=== PATIENT | female | born 1995 | race African-American/Black ===

== ENCOUNTER 2019-09-14 05:45 | Inpatient (IN) ==
[2019-09-14] MEDS ORDERED: PEPCID IV PRN (05:53)
[2019-09-14] MEDS ORDERED: ZOFRAN IV PRN (05:53)
[2019-09-14] MEDS ORDERED: KEFZOL 2 GM/D5W 2 GM/50 ML IVPB IV PRN (05:53)
[2019-09-14] MEDS ORDERED: STADOL IV PRN (05:53)
[2019-09-14] MEDS ORDERED: PEPCID PO PRN ×2 (05:53)
[2019-09-14] MEDS ORDERED: TYLENOL PO PRN (05:53)
[2019-09-14] MEDS ORDERED: REGLAN PO PRN (05:53)
[2019-09-14] MEDS ORDERED: AMPICILLIN 2 GM in NS 100 ML IV ONE (06:00)
[2019-09-14] MEDS ORDERED: SODIUM CHLORIDE 0.9% INJ SCH (06:00)
[2019-09-14] MEDS: LR 1,000 ML IV SCH ×2 (06:25→08:44)
[2019-09-14 06:43] LABS: URINE SOURCE VOIDED
[2019-09-14 06:46] LABS: BASO# 0.03 X1000 (0.0-0.2); BASO% 0.4 % (0.0-0.8); BILIRUBIN URINE NEGATIVE (NEGATIVE); BLOOD URINE TRACE (NEGATIVE); COLOR YELLOW; EOS# 0.07 X1000 (0.0-0.7); GLUCOSE URINE NEGATIVE (NEGATIVE); HEMATOCRIT 33.1 % (37.0-47.0); HEMOGLOBIN 10.3 g/dL (12.0-16.0); KETONE URINE NEGATIVE (NEGATIVE); LEUKOCYTES URINE TRACE (NEGATIVE); LYMPH# 2.78 X1000 (1.2-3.4); LYMPH% 41.6 % (20.5-51.1); MCHC 31.1 g/dL (33-37); MCV 83.6 FL (81-99); MONO# 0.44 X1000 (0.11-0.59); MONO% 6.6 % (1.7-9.3); MPV 10.7 FL (7.4-10.4); NEUT# 3.36 X1000 (1.4-6.5); NEUT% 50.4 % (42.2-75.2); NITRITE URINE NEGATIVE (NEGATIVE); PH URINE 6.5; PLT 191 X1000 (130-400); PROTEIN URINE TRACE mg/dL (NEGATIVE); RBC 3.96 XMIL (4.2-5.4); RDW 14.1 % (11.5-14.5); SP GRAVITY URINE 1.027; TURBIDITY URINE CLEAR (CLEAR); UROBILINOGEN URINE NORMAL (NORMAL); WBC 6.68 X1000 (4.8-10.8)
[2019-09-14 07:00] LABS: UR AMPHETAMINES QUAL NONE DETECTED (NONE DETECT); UR BARBITUATES QUAL NONE DETECTED (NONE DETECT); UR BENZODIAZEPIN QUAL NONE DETECTED (NONE DETECT); UR CANNABINOIDS QUAL NONE DETECTED (NONE DETECT); UR COCAINE QUAL NONE DETECTED (NONE DETECT); UR METHADONE QUAL NONE DETECTED (NONE DETECT); UR OPIATES QUAL NONE DETECTED (NONE DETECT); UR OXYCODONE QUAL NONE DETECTED (NONE DETECT); UR PCP QUAL NONE DETECTED (NONE DETECT)
[2019-09-14] MEDS: PITOCIN 30 UNITS/NS 30 UNIT/500 ML IV.SOLN IV SCH ×2 (07:11→16:18)
[2019-09-14] MEDS ORDERED: XYLOCAINE-MPF 1% INJ ONE (07:16)
[2019-09-14] MEDS ORDERED: MINERAL OIL TOP PRN ×2 (07:16→16:06)
[2019-09-14] MEDS ORDERED: NAROPIN 0.2% INJ ONE (08:15)
[2019-09-14] MEDS ORDERED: FENTANYL IV ONE (08:15)
[2019-09-14] MEDS ORDERED: FENTANYL-BUPIV-NS 500 MCG-0.125% 250 ML EPIDURAL SCH (09:00)
--- NOTE | 2019-09-14 09:03 | HISTORY AND PHYSICAL ---
HISTORY OF PRESENT ILLNESS: The patient is a 24-year-old, black female, G3, P1, at 40 weeks gestation, for induction of labor. The patient's care is unremarkable to date. She does have a group B strep culture that was positive, and plan on treating with prophylactic antibiotic therapy during her labor course. PAST MEDICAL HISTORY: Unremarkable. PAST SURGICAL HISTORY: Appendectomy. PAST OB HISTORY: G3, P1. Spontaneous vaginal delivery x1, 7 pounds 6 ounces, and she had an elective AB. UPPER CASER HISTORY: Menarche was at age 14. REVIEW OF SYSTEMS: She reports migraines. FAMILY HISTORY: Significant for diabetes mellitus and high blood pressure. SOCIAL HISTORY: Tobacco use: None. Alcohol use: None. MEDICATIONS: None at the present time. ALLERGIES: No known drug allergies. PHYSICAL EXAMINATION: VITAL SIGNS: Height 5 feet 6 inches, weight 244 pounds. Temperature 98 degrees, blood pressure 120/67, pulse of 90, respirations 14. heart rate in the 130s with positive accelerations. HEENT: Pupils equal, round, reactive to light and accommodation. Extraocular movements intact. Oropharynx clear. NECK: Supple. No thyromegaly. LUNGS: Clear to auscultation. HEART: Regular rate and rhythm. ABDOMEN: Gravid, nontender. PELVIC: Cervix was 2 cm dilated, 50% effaced, -2 station. EXTREMITIES: Mild lower extremity edema. DTRs were 2+ bilaterally of lower extremities. ASSESSMENT AND PLAN: A 24-year-old, 3, para 1, at 40 weeks gestation, for induction of labor with a favorable cervix. The patient is also noted to be group B strep positive, and will start antibiotic prophylactic therapy. cc: Tyson Santos III, MD
[2019-09-14] MEDS: AMPICILLIN 1 GM in NS 50 ML IV SCH ×2 (11:07→15:08)
[2019-09-14] MEDS ORDERED: M-M-R II VACCINE SUBQ ONE (16:06)
[2019-09-14] MEDS ORDERED: AMBIEN PO PRN (16:06)
[2019-09-14] MEDS ORDERED: HYDROXYZINE IM PRN (16:06)
[2019-09-14] MEDS ORDERED: PITOCIN IM PRN (16:06)
[2019-09-14] MEDS ORDERED: NORCO-5 PO PRN (16:06)
[2019-09-14] MEDS ORDERED: BENADRYL IV PRN (16:06)
[2019-09-14] MEDS ORDERED: XYLOCAINE-MPF 1% INJ PRN (16:06)
[2019-09-14] MEDS ORDERED: BOOSTRIX VACCINE IM ONE (16:06)
[2019-09-14] MEDS ORDERED: PERI MEDS (DERMOPLAST/NUPERCAINAL/TUCKS) MISC PRN (16:06)
[2019-09-14] MEDS ORDERED: CYTOTEC PO PRN (16:06)
[2019-09-14] MEDS ORDERED: ATARAX PO PRN (16:06)
[2019-09-14] MEDS ORDERED: BENADRYL PO PRN (16:06)
[2019-09-14] MEDS ORDERED: PITOCIN 20 UNITS/NS 20 UNITS/1,000 ML IV.SOLN IV SCH (16:15)
[2019-09-14] MEDS ORDERED: PITOCIN 30 UNITS/NS 30 UNIT/500 ML IV.SOLN IV SCH (16:15)
--- NOTE | 2019-09-14 19:46 | OPERATIVE NOTE ---
PROCEDURE DATE: 09/14/2019 DELIVERY NOTE: The patient progressed to complete and pushing. Had spontaneous vaginal delivery of a female , 7 pounds 11 ounces, with Apgars of 9 and 10, at 1545 on 09/14/2019 over an intact perineum. Cord blood sample was obtained at this time. Placenta was delivered intact with 3 vessel cord. ESTIMATED BLOOD LOSS: 150 mL. ANESTHESIA: Epidural. COUNTS: All counts were correct x2. cc: MD VIVEK Pichardo III
[2019-09-14] MEDS: MOTRIN PO PRN (21:47)
[2019-09-14] MEDS: PERICOLACE PO SCH (21:47)
[2019-09-15 04:50] LABS: BASO# 0.02 X1000 (0.0-0.2); BASO% 0.3 % (0.0-0.8); EOS# 0.05 X1000 (0.0-0.7); EOS% 0.7 % (0.0-10.0); HEMATOCRIT 32.4 % (37.0-47.0); LYMPH% 36.6 % (20.5-51.1); MCHC 30.9 g/dL (33-37); MCV 84.2 FL (81-99); MONO# 0.53 X1000 (0.11-0.59); MONO% 7.2 % (1.7-9.3); NEUT# 4.07 X1000 (1.4-6.5); NEUT% 55.2 % (42.2-75.2); PLT 191 X1000 (130-400); RBC 3.85 XMIL (4.2-5.4); RDW 14.3 % (11.5-14.5); WBC 7.37 X1000 (4.8-10.8)
--- NOTE | 2019-09-15 07:06 | OB/GYN PROGRESS NOTE ---
- Subjective Patient asleep, no distress, report per staff benign OB Physical Exam Vital Signs - 8 hr 09/15/19 00:06 Temperature 97.1 F L Pulse Rate 77 Respiratory Rate 18 Blood Pressure 114/60 O2 Sat by Pulse Oximetry 97 - CONSTITUTIONAL General Appearance: appears well, no apparent distress - RESPIRATORY Respiratory: no respiratory distress - GENITOURINARY Female Genitalia/Pelvic Exam: deferred Active Medications Generic Name Dose Route Start Last Admin Trade Name Freq PRN Reason Stop Dose Admin Acetaminophen 650 mg 09/14/19 05:53 09/14/19 08:08 Tylenol PO 650 mg Q4-6H PRN PRN Administration Headache Hydrocodone Bitart/Acetaminophen 1 each 09/14/19 16:06 09/15/19 00:21 Lyman-5 PO 1 each Q3-4H PRN PRN Administration Pain (1-6 on Pain Scale) Hydrocodone Bitart/Acetaminophen 1 each 09/14/19 16:06 Lyman-10 PO Q3-4H PRN PRN Pain (7-10 on Pain Scale) Benzocaine 1 each 09/14/19 16:06 Jemima Meds (Dermoplast/Nupercainal/Tucks) MISC 3-4XDAY PRN PRN episiotomy/hemorrhoids Butorphanol Tartrate 2 mg 09/14/19 05:53 Stadol IV PRN PRN Pain Diphenhydramine HCl 12.5 mg 09/14/19 16:06 Benadryl IV Q4H PRN PRN Itching Diphenhydramine HCl 25 mg 09/14/19 16:06 Benadryl PO Q4H PRN PRN Itching Famotidine 20 mg 09/14/19 05:53 Pepcid PO ONCE PRN PRN section Famotidine 20 mg 09/14/19 05:53 09/14/19 11:07 Pepcid IV 20 mg Q12H PRN PRN Administration GI upset or indigestion Famotidine 40 mg 09/14/19 05:53 Pepcid PO Q12H PRN PRN GI upset or indigestion Hydroxyzine HCl 50 mg 09/14/19 16:06 Hydroxyzine IM Q3-4H PRN PRN Nausea Hydroxyzine HCl 50 mg 09/14/19 16:06 Atarax PO Q3-4H PRN PRN Nausea Lactated Ringer's 1,000 mls @ 0 mls/hr 09/14/19 06:00 09/14/19 08:44 Lr IV 999 mls/hr .Q0M DOMINIK Administration As Directed Oxytocin/Sodium Chloride 30 unit in 500 mls @ 0 mls/hr 09/14/19 07:00 09/14/19 16:18 Pitocin 30 Units/Ns IV 125 mls/hr .Q0M DOMINIK Administration As Directed Cefazolin Sodium/Dextrose 2 gm in 50 mls @ 50 mls/hr 09/14/19 05:53 Kefzol 2 Gm/D5w IV ONCE PRN PRN section Fentanyl/Bupivacaine/Sodium Chlor 250 mls @ 0 mls/hr 09/14/19 09:00 09/14/19 09:30 Kjelbunn-Lcecd-Tx 500 Mcg-0.125% EPIDURAL 12 mls/hr DIRECTED DOMINIK Administration As Directed Oxytocin/Sodium Chloride 20 units in 1,000 mls @ 0 mls/hr 09/14/19 16:15 Pitocin 20 Units/Ns IV .Q0M DOMINIK As Directed Ibuprofen 800 mg 09/14/19 16:06 09/14/19 21:47 Motrin PO 800 mg Q8H PRN PRN Administration cramping Lidocaine HCl 30 ml 09/14/19 16:06 Xylocaine-Mpf 1% INJ PRN PRN Perineal repair Metoclopramide HCl 10 mg 09/14/19 05:53 Reglan PO ONCE PRN PRN section Mineral Oil 30 ml 09/14/19 07:16 Mineral Oil TOP PRN PRN lubrication Mineral Oil 30 ml 09/14/19 16:06 Mineral Oil TOP PRN PRN Perineal massage Misoprostol 800 microgm 09/14/19 16:06 Cytotec PO PRN PRN Severe bleeding Ondansetron HCl 4 mg 09/14/19 05:53 Zofran IV PRN PRN Nausea Oxytocin 20 unit 09/14/19 16:06 Pitocin IM PRN PRN Severe bleeding Senna/Docusate Sodium 1 each 09/14/19 21:00 09/14/19 21:47 Pericolace PO 1 each QHS DOMINIK Administration Sodium Chloride 5 - 10 ml 09/14/19 06:00 Sodium Chloride 0.9% INJ DIRECTED DOMINIK Zolpidem Tartrate 10 mg 09/14/19 16:06 Ambien PO HS PRN PRN Sleep Laboratory Results - last 24 hr 09/14/19 09/15/19 06:20 04:07 WBC 7.37 RBC 3.85 L Hgb 10.0 L Hct 32.4 L MCV 84.2 MCH 26.0 L MCHC 30.9 L RDW Std Deviation 14.3 Plt Count 191 MPV 11.0 H Immature Gran % (Auto) 0.0 Neut % (Auto) 55.2 Lymph % (Auto) 36.6 [place] % (Auto) 7.2 Eos % (Auto) 0.7 Baso % (Auto) 0.3 Immature Gran # (Auto) 0.00 Neut # (Auto) 4.07 Lymph # (Auto) 2.70 [place] # (Auto) 0.53 Eos # (Auto) 0.05 Baso # (Auto) 0.02 RPR NON-REACTIVE OB Assessment & Plan (1) Normal course Status: Acute Plan: routine care
[2019-09-15] MEDS: MOTRIN PO PRN ×2 (08:15→18:01)
[2019-09-15] MEDS: NORCO-10 PO PRN ×2 (08:15→12:32)
[2019-09-16] MEDS: PERICOLACE PO SCH (00:15)
[2019-09-16] MEDS: MOTRIN PO PRN ×2 (00:16→08:12)
[2019-09-16] MEDS: NORCO-10 PO PRN ×2 (00:16→08:12)
--- NOTE | 2019-09-16 05:46 | DISCHARGE SUMMARY ---
ADMISSION DATE: 09/14/2019 DISCHARGE DATE: 09/16/2019 HISTORY: The patient is a 24-year-old, 3, now para 2, who at 40 weeks presented for induction of labor. Her care was unremarkable. She did have positive group B strep that was treated during labor. MEDICAL HISTORY: Unremarkable. She does have a history of migraines. OBSTETRICAL HISTORY: Remarkable for spontaneous vaginal delivery of a 7 pound 6 ounce child, and an elective . FAMILY HISTORY: Significant for diabetes and high blood pressure. SOCIAL HISTORY: And she did not smoke or drink. She had no known drug allergies. HOSPITAL COURSE: The patient was admitted for induction and was treated for her positive GBS. She was delivered of a full-term living female child with Apgars 9 and 10 at 15:45 on September 14, 2019, over an intact perineum. The placenta was delivered intact. The patient's course was totally benign. She remained well and afebrile. She was thought to be fit for discharge on day #2. Her vital signs were stable with normal temperature, blood pressure 113/65, and the was also doing well. Her hematocrit on admission was 33.1, and the following day was 32.4. The patient verbalized understanding of all discharge instructions. DISCHARGE INSTRUCTIONS: She was discharged home with Percocet and Motrin and will have followup with her private medical doctor in approximately 4 to 6 weeks. She verbalized understanding of all instructions and all questions were answered. cc: Tyson Santos III, MD MTDKelly
[2019-09-16 08:07] VITALS: BP 116/83
== END 2019-09-16 15:20 | disposition home or self-care (01) | DRG 807 ==
LOC: LD 05:45
PROVIDERS: ADMIT Obstetrics & Gynecology; ATTEND Obstetrics & Gynecology